=== PATIENT | female | born 1980 | race Two or more races ===

== ENCOUNTER 2024-07-29 00:01 | Emergency (ER) | payer MEDICAID, SELFPAY ==
[2024-07-29 00:03] VITALS: BMI 40.8
[2024-07-29 00:19] VITALS: BP 146/91; PULSE 89; RESP 20; TEMP 36.7; O2SAT 96
--- NOTE | 2024-07-29 00:45 | PD.EDRME ---
Rapid Medical Screening Exam RME Arrival date/time: 07/29/24 00:01 44 year old f present to ED for c/o of 6 days of cough, congestion, sore throat I have greeted and performed a focused initial assessment of this patient. A comprehensive ED assessment and evaluation of the patient, analysis of all test results, and completion of the medical decision making process will be conducted by additional ED providers. Chief Complaint: Flu Like Symptoms Time Seen by Provider: 07/29/24 00:06 Vital signs: Vital Signs Temperature 98.1 F 07/29/24 00:19 Pulse Rate 89 07/29/24 00:19 Respiratory Rate 20 07/29/24 00:19 Blood Pressure 146/91 H 07/29/24 00:19 Pulse Oximetry (%) 96 07/29/24 00:19 Oxygen Delivery Method Room Air 07/29/24 00:19
[2024-07-29 00:59] VITALS: PULSE 84; RESP 20; O2SAT 99
[2024-07-29] MEDS: ALBUTEROL/IPRATROPIUM (Duoneb) RT SOL 3 ML NEBU INH (01:10)
[2024-07-29 01:22] LABS: Strep A Rapid Negative (Negative)
[2024-07-29] MEDS: BENZONATATE 100 MG CAPSULE 200 MG PO (01:28)
[2024-07-29] MEDS: predniSONE 20 MG TABLET 60 MG PO (01:28)
--- NOTE | 2024-07-29 02:02 | EDNOTE_ITS ---
Upper Respiratory Inf. RME/HPI General Chief Complaint: Flu Like Symptoms Stated Complaint: COUGH CONGESTION Time Seen by Provider: 07/29/24 00:06 Arrival date/time: 07/29/24 00:01 44 year old female present to emergency room with c/o of productive cough,sore throat congestion for 6 days. SEVERITY: Symptoms are described as being severe with limitations on activities of daily living CONTEXT: The patient is unable to identify any inciting events. DURATION/TIMING: The symptoms started approximately 6 days ago and have been constant since and have been progressive getting worse. ASSOCIATED SYMPTOMS: cough, sore throat, and congestion MODIFYING FACTORS: The patient is unable to identify any alleviating or aggravating symptoms. PERTINENT ROS: no chest pain/shortness of breath no nausea,vomiting, diarrhea, no dizziness/headache no rash no loc/syncope episode REVIEW OF SYSTEMS: See History of Present Illness - with the exception of those mentioned in the history of present illness, all other systems reviewed and reported as negative GENERAL: In general the patient is awake, interactive, in an emergency department gurney. HEAD/EYES/EARS/NOSE/THROAT: normo-cephalic, atraumatic, mucus membranes are moist, anicteric, palpebral conjunctiva is pink, trachea is midline. CARDIOVASCULAR: regular rate and regular rhythm, no murmurs, heart sounds are not distant, strong pulses in all four extremities that are equal and symmetric bilateral upper and lower extremities, normal capillary refill. + cough noted CHEST/PULMONARY: normal chest rise and fall, good air movement, clear to auscultation bilaterally, normal inspiratory to expiratory ratios without evidence of respiratory distress. NECK: No midline/Paraspinal tenderness, no step off ROM/Strenght intact No Kernig and bruzinski sign. No trauma ABDOMEN: soft, not tender, no masses appreciated BACK: normal range of motion without pain. NEUROLOGICAL: cranio-facial features are symmetric, moves all four extremities equally without obvious limitations or weakness. EXTREMITY: no tenderness to palpation over the long bones or large joints of the bilateral upper and lower extremities, no joint swelling, no joint erythema, no signs of trauma, no unilateral leg swelling and no peripheral edema. SKIN: warm, dry, well-perfused, no jaundice, no rash, no telangiectasias or petechia. PSYCH: calm, cooperative, no evidence of psychosis or agitation RME / HPI RME / HPI Narrative: 07/29/24 00:01 44 year old f present to ED for c/o of 6 days of cough, congestion, sore throat I have greeted and performed a focused initial assessment of this patient. A comprehensive ED assessment and evaluation of the patient, analysis of all test results, and completion of the medical decision making process will be conducted by additional ED providers. Related Data Previous Rx's ?Medication ?Instructions ?Recorded ibuprofen 800 mg tablet 800 mg PO TID PRN pain #30 t abs 03/19/21 [id number]-[id number] 250 1 tab PO Q6H PRN he adache #20 tabs 07/04/21 mg-250 mg-65 mg tablet (Excedrin Migraine) naproxen 500 mg tablet (Naprosyn) 500 mg PO BID #14 ta bs 09/25/22 albuterol sulfate 90 mcg/actuation 2 inh inhalation Q6 H PRN shortness 07/29/24 breath activated powder inhaler of breath #1 ea azithromycin 500 mg tablet See Rx Instructions PO .COM PLEX #3 07/29/24 tabs benzonatate 100 mg capsule 100 mg PO TID PRN cough #30 caps 07/29/24 methylprednisolone 4 mg tablets in 4 mg PO .as directe d #21 tabs 07/29/24 a dose pack (Medrol (Marino)) Allergies Allergy/AdvReac Type Severity Reaction Status Date / Time No Known Allergies Allergy Verified 07/29/24 00:10 Course Course Course Narrative: Patient presenting with cough/congestion/sore throat for 6 days .? Patient afebrile.? No hypoxia.? ?Lung exam within normal limits.? + cough noted.? History, physical exam, and radiographic findings were discussed with the patient.? At this time, it is felt that the most likely explanation for the patient's symptoms is acute bronchitis versus viral upper respiratory infection.? I also considered pneumonia, GERD, pneumothorax, PE but this appears less likely considering the data gathered thus far.? I have instructed the patient to return to the ER at any time if there are any new or worsening symptoms. Provided patient with prescription for cough suppressant.? Supportive treatment options were discussed.? ?The patient expressed understanding of and agreement with this plan.? Opportunity was given for questions prior to discharge and all stated questions were answered to the patient's satisfaction.? strep, flu negative? Plan:? Prescribed azithromycin, medro dose marino, tessalon pearls , inhaler? Advised Pt on supportive therapies, including using a vaporizer/humidifer/steam from hot showers, advancement of fluids as tolerated, exercise, nasal saline sprays, rest, avoidance of cold air, avoidance of second-hand smoke, frequent hand-washing w/ soap and water, and OTC acetaminophen or ibuprofen as directed prn for pain control. Instructed Pt to monitor for shaking chills or T>100.5 deg F, persistent cough >7-10d, hemoptysis, delirium or confusion, cyanosis, and respiratory distress. Instructed Pt to f/up w/ PCP in days. Pt verbally expressed understanding and all questions were addressed to Pt's satisfaction. Quality Measures none Orders Category Date Time Status Bedside Influenza A&B Antigen Test NOW Care 07/29/24 01:25 Active Strep A Rapid Stat Lab 07/29/24 00:54 Completed Albuterol/Ipratr Rt Gill [Duoneb Rt Gill] Med 07/29/24 00:44 Discontinued 3 ml INH X1 ONE Azithromycin Po [Zithromax PO] Med 07/29/24 02:02 Once 500 mg PO X1 ONE Benzonatate [Tessalon] Med 07/29/24 00:44 Discontinued 200 mg PO X1 ONE predniSONE Med 07/29/24 00:44 Discontinued 60 mg PO X1 ONE Reevaluation(s) Reevaluation #1: pt is feeling better after treatment Vital Signs Vital signs: Vital Signs Temperature 98.1 F 07/29/24 00:19 Pulse Rate 89 07/29/24 00:19 Respiratory Rate 20 07/29/24 00:19 Blood Pressure 146/91 H 07/29/24 00:19 Pulse Oximetry (%) 96 07/29/24 00:19 Oxygen Delivery Method Room Air 07/29/24 00:19 Upper Respiratory Infection Patient data External records reviewed:: [facility] previous records Clinical information provided by:: patient Social determinants that could affect healthcare access:: none Patient has the following chronic illnesses:: as stated in chart How is presenting disease/condition affected by chronic disease/condition?: uneffected by Evaluation data The following diagnostics were reviewed and interpreted by me:: lab results Lab and/or radiology exams considered but not ordered:: n/a Interpretation Summary: strep/flu negative Medications / Prescriptions Medications or Prescriptions considered but not ordered:: n/a Medication administrations:: Medication Administration History Discontinued Medications Albuterol/Ipratropium (Albuterol/Ipratropium (Duoneb) Rt Gill 3 Ml Nebu) 3 ml INH X1 ONE Stop: 07/29/24 00:45 Last Admin: 07/29/24 01:10 Dose: 3 ml Documented By: JOSELO Comments: Scanner not working Benzonatate (Benzonatate 100 Mg Capsule) 200 mg PO X1 ONE; Protocol Stop: 07/29/24 00:45 Last Admin: 07/29/24 01:28 Dose: 200 mg Documented By: ROSALES Prednisone (Prednisone 20 Mg Tablet) 60 mg PO X1 ONE Stop: 07/29/24 00:45 Last Admin: 07/29/24 01:28 Dose: 60 mg Documented By: ROSALES as stated above Consultations Consultation(s) initiated? (list below): No Diagnosis Upper Respiratory Differential Diagnosis: upper respiratory infection, viral infection, bronchitis, influenza, pharyngitis and other (pna ) Most likely diagnosis given after review of the tests above:: bronchitis vs early pna Admission Indicated Admission indicated?: not indicated Admission Request Was there a request for admission?: No Disposition Plan Disposition Plan: Discharge Discharge Attestation Discharge Attestation: The patient and all family members were given an opportunity to ask questions and understood the discharge instructions. Discharge instructions specifically effects, indications for sooner follow up or return to the emergency department, and the expected course of current diagnosis. Patient condition: Stable Discharge Plan Plan Patient Disposition: HOME (Self Care) Health Concerns: Follow with PMD as directed Return to ED if sx worsen Prescriptions/Referrals Prescriptions/Med Rec: New azithromycin 500 mg tablet See Rx Instructions .ROUTE .COMPLEX Qty: 3 0RF Rx Instructions: For 500 mg dose pack: take 500 mg once daily for 3 days methylprednisolone [Medrol (Marino)] 4 mg tablets,dose pack 4 mg PO .as directed Qty: 21 0RF albuterol sulfate 90 mcg/actuation aerosol powdr breath activated 2 inh inhalation Q6H PRN (Reason: shortness of breath) Qty: 1 0RF benzonatate 100 mg capsule 100 mg PO TID PRN (Reason: cough) Qty: 30 0RF No Action ibuprofen 800 mg tablet 800 mg PO TID PRN (Reason: pain) Qty: 30 0RF Excedrin Migraine 250-250-65 mg tablet 1 tab PO Q6H PRN (Reason: headache) Qty: 20 0RF naproxen [Naprosyn] 500 mg tablet 500 mg PO BID Qty: 14 0RF Referrals: Tip Vogel MD [Primary Care Provider] - In 1 week Problem List Clinical Impression: Bronchitis Patient/Caregiver Discharge Instructions Education Materials: ED Bronchitis with Wheezing (Adult) Print Language: Luxembourger Stand Alone Forms: Candace Award Info., Patient Portal Info Letter
[2024-07-29] MEDS: AZITHROMYCIN 250 MG TABLET 500 MG PO (02:15)
== END 2024-07-29 02:17 | disposition home or self-care (01) ==
PROVIDERS: Physician Assistant; Emergency Provider Emergency Medicine; PCP Family Medicine
DX: J40 Bronchitis, not specified as acute or chronic (principal)
CPT/HCPCS: 86710; 87651; 94640; 99283; A9270; J7512